=== PATIENT | female | born 1990 | race Two or more races ===

== ENCOUNTER 2019-07-08 21:16 | Emergency (ER) | payer MEDICAID, SELFPAY ==
[2019-07-08 21:17] VITALS: BP 96/66; PULSE 96; RESP 18; TEMP 38.3; O2SAT 96; BMI 20.5
[2019-07-08] MEDS: Cephalexin 250 MG Capsule 500 MG PO (22:15)
[2019-07-08] MEDS: Ibuprofen 200 MG Tablet 400 MG PO (22:15)
--- NOTE | 2019-07-08 22:49 | ED.DCSUM_ITS ---
- ER Visit Summary Date of Service: 07/08/19 Chief Complaint: Fever History of Present Illness: The patient is a 28 F who lives in [place]. She reports that she has a fever that began 3 days ago. Is been up to 101 degrees. She is breast-feeding [id number]. She reports that she has redness, warm th, and pain to the inferolateral quadrant of her right breast. She denies sore throat or cough. She reports that she has bilateral ear pain. She also complains of myalgias and a headache that stated 10 severity. Physical Examination: Vitals: Stable. Afebrile. General: Well-nourished and well-developed. Head: Normocephalic atraumatic. HEENT: TMs are within normal's bilaterally. No pharyngeal or tonsillar regular. No cervical lymphadenopathy. Neck: Supple, no lymphadenopathy. No JVD. Nontender. Cardiovascular: Regular rate and rhythm. No murmurs. Respiratory: No respiratory distress. Clear to auscultation bilaterally. Abdominal: Soft, nontender, nondistended, normal bowel sounds. No guarding, rebound, or peritoneal signs. Back: Nontender. Extremities: Nontender, no edema. Skin: Erythema, warmth, and moderate tenderness palpation to the inferolateral quadrant of her right breast. There is no induration or fluctuance to suggest abscess. Neurologic: Alert and oriented ?3. Cranial nerves II through XII are intact. Normal strength and sensation. Psych: Normal affect. Emergency Department Course and Treatment: Patient was treated with Keflex and ibuprofen. She is resting comfortably. Treatment Plan: Patient will be discharged on Keflex. Instructed to follow-up with her OB in 3 to 5 days for another exam. Return to the emergency department for any worsening symptoms. Disposition: To home in improved and stable condition. Impression: 1. Mastitis on right. This note was generated with [employer] dictation software. It may contain incorrect words, spelling, and punctuation that were not noted in review of the chart prior to signing ED Disposition - Plan for ED Patient: Disposition: Home or Assisted Living Instructions: Mastitis Prescriptions: Cephalexin [Keflex] 500 mg PO Q6 #28 cap Prescription Printed Referrals: GLORIA WING [Other] - 3-5 Days
== END 2019-07-08 23:02 | disposition home or self-care (01) ==
LOC: ED 22:21
PROVIDERS: Emergency Provider Emergency Medicine
DX: N61.0 Mastitis without abscess (principal); D64.9 Anemia, unspecified; H92.03 Otalgia, bilateral; R51 Headache; M79.10 Myalgia, unspecified site; K21.9 Gastro-esophageal reflux disease without esophagitis
CPT/HCPCS: 99283